=== PATIENT | female | born 1935 | race Hispanic/Latino ===

== ENCOUNTER 2017-10-18 15:08 | Emergency (ER) | payer MEDICARE, MEDICAID ==
--- NOTE | 2017-10-18 17:05 | RAD ---
RIGHT FOOT THREE VIEWS: 10/18/17 HISTORY: Fall, injury, right foot pain. FINDINGS/IMPRESSION: No acute fracture or dislocation identified. Plantar and posterior calcaneus spurs are present. vascu lar calcifications are noted. POS: [facility]
== END 2017-10-18 16:30 | disposition home or self-care (01) ==
LOC: ERS 15:08
DX: S92.351A Displaced fracture of fifth metatarsal bone, right foot, initial encounter for closed fracture (principal); E11.9 Type 2 diabetes mellitus without complications; I10 Essential (primary) hypertension; M19.90 Unspecified osteoarthritis, unspecified site; W20.8XXA Other cause of strike by thrown, projected or falling object, initial encounter

== ENCOUNTER 2017-12-30 11:43 | Observation (INO) | payer MEDICARE, MEDICAID ==
[2017-12-30] MEDS ORDERED: Morphine 4 MG/ML VIAL ONE (12:33)
[2017-12-30] MEDS ORDERED: Ondansetron ODT 4 MG TAB ONE (12:33)
[2017-12-30 12:58] LABS: Hemoglobin 12.5 g/dL (12.0-16.0); Mean Corpuscular HGB CONC 35.2 g/dL (32.0-36.0); Mean Corpuscular Hemoglobin 33.7 pg (27.0-31.0); Mean Corpuscular Volume 95.7 fl (81.0-99.0); Mean Platelet Volume 8.3 fL (7.4-10.4); Platelet Count 58 thou/uL (130-400); RBC Distribution Width 13.5 % (11.5-14.5); Red Blood Cell (RBC) Count 3.71 mill/uL (4.20-5.40); White Blood Cell (WBC) Count 1.5 thou/uL (4.8-10.8)
[2017-12-30 13:09] LABS: ALT (SGPT) 33 U/L (8-55); AST (SGOT) 51 U/L (5-34); Albumin 3.2 g/dL (3.4-4.8); Alkaline Phosphatase 131 U/L (40-150); Anion Gap 10 mmol/L (10-20); BUN (Urea Nitrogen) 8 mg/dL (9.8-20.1); Bilirubin, Total 2.5 mg/dL (0.2-1.2); Calc. Creatinine Clearance 0 mL/min (70-130); Calcium 9.1 mg/dL (7.8-10.44); Carbon Dioxide 24 mmol/L (23-31); Chloride 110 mmol/L (98-107); Estimated GFR-MDRD 72; Globulin 2.9 g/dL (2.4-3.5); Glucose 155 mg/dL (83-110); Lipase 45 U/L (8-78); Potassium 4.1 mmol/L (3.5-5.1); Protein, Total 6.1 g/dL (6.0-8.3); Sodium 140 mmol/L (136-145)
[2017-12-30 13:21] LABS: #Eosinphils 0.1 thou/uL (0.0-0.7); #Lymphocytes 0.5 thou/uL (1.20-3.40); #Monocytes 0.1 thou/uL (0.11-0.59); #Neutrophils 0.8 thou/uL (1.40-6.50); %Basophils 0.5 % (0.0-1.0); %Eosinophils 7.4 % (0.0-10.0); %Lymphocytes 30.8 % (21.0-51.0); %Monocytes 7.6 % (0.0-10.0); %Neutrophils 53.8 % (42.0-75.0); PLT Morphology Comment Appears Decreased
[2017-12-30] MEDS ORDERED: ISOVUE-370 76%-LOCM 1 ML ONE (14:12)
--- NOTE | 2017-12-30 15:03 | CT ---
CT ABDOMEN WITH CONTRAST CT PELVIS WITH CONTRAST: HISTORY: Pain. COMPARISON: 01/04/17. TECHNIQUE: Abdomen and pelvic CT are performed with IV contrast. Enteric contrast was not administered. Monson l reformatted images are submitted for interpretation. FINDINGS: ABDOMEN CT: No masses or consolidation of the lung bases. Heart size is normal. No pericardial effusion. The d escending thoracic aorta and abdominal aorta have a normal caliber. No periaortic fat stranding. Sy mmetric attenuation of psoas muscles. Intra- and extrahepatic portal vein is patent. Mild nodularity of the liver. The spleen is enlarged measuring 16.5 cm. Pancreas and adrenal glands have appropriate enhancement. There is a calculus in the fundus of the gallbladder measuring 1.4 cm. Symmetric enhancement of the kidneys. No obstructive uropathy. No gastrohepatic, retrocrural, or periportal lymphadenopathy. There is free fluid in the perihepatic and perisplenic space. Fluid tracks along both pericolic gutt ers. No mesenteric mass, lymphadenopathy, or free air. Limited evaluation of the alimentary canal due to the lack of oral contrast. Gastric mucosa, duodenu m, and multiple normal-appearing small bowel loops are noted. The ileocecal junction is normal. Nor mal-caliber air-filled appendix. Scattered fecal material in a nondistended, nondilated colon. Dive rticulosis. No diverticulitis. Mucosal thickening of the left hemicolon. Extensive gastroesophageal and splenic varices. Stranding of the central abdominal mesentery is again noted. PELVIC CT: Uterus and adnexal structures are unremarkable. There is free fluid in the pelvis. No mass, lymphad enopathy, or free air. The urinary bladder is unremarkable. IMPRESSION: 1. Cirrhotic change of the liver. 2. Gastroesophageal and splenic varices. There is evidence of portal hypertension. 3. Redemonstration of ascites. 4. Diverticulosis, without evidence of diverticulitis. There is mucosal thickening of the left subhash colon which may be due to inadequate distention. Colonoscopy is recommended. POS: [facility]
[2017-12-30 15:19] LABS: INR-International Normal Ratio 1.5; Prothrombin Time 18.1 SEC (12.0-14.7)
[2017-12-30 15:20] LABS: PTT 42.6 SEC (22.9-36.1)
--- NOTE | 2017-12-30 15:43 | PDOC.FPRHP ---
Addendum entered and electronically signed by Montez Julio MD 12/30/17 16:40 : BP 104/66 Resp 18 O2 Sat 95% on RA P 57 Temp 97.9 Physical Exam Constitutional: obese, Well developed. No acute distress Alert and orientedx3 HEENT: Normocephalic, Atraumatic Neck: No JVD, No LAD, No thyromegaly Cardio: RRR, no murmurs or gallops Resp: CTA-B, no wheezes, crackles or rales Abdomen: TTP in RUQ and RLQ, No rebound tenderness. BS hyperactive. No masses. Neuro: No focal neuro defecit noted Psch: A&Ox3, Cooperative Skin: No rash or lesions. No abnormal bruising noted. MSK: No swelling noted, No weakness noted. ROM intact. 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 States she has been constipated the last 3 days. Denies any diarrhea or hematochezia. Endorses chills but denies fever. Also c/o nausea and vomiting. By review of records, this appears to occur approximately once each year. It has been thought to be due to portal venous congestion & back up vs. infectious vs. ischemic in the past. - Allergies/Adverse Reactions Allergies Allergy/AdvReac Type Severity Reaction Status Date / Time aspirin Allergy Nausea Verified 03/07/17 13:53 hydrocodone Allergy Nausea Verified 03/07/17 13:53 - Home Medications Medication Instructions Recorded Confirmed Type Hydroxychloroquine Sulfate 200 mg PO DAILY 01/01/15 03/07/17 History Nadolol [Corgard] 20 mg PO DAILY 01/05/17 03/07/17 History Pantoprazole [Protonix] 40 mg PO DAILY #30 01/08/17 03/07/17 Rx Levemir Flexpen [Levemir FlexPen] 40 unit SC BID 03/07/17 03/07/17 History - History PMHx: DMII, Peripheral Neuropathy, Hx portal vein thrombosis and SMV thrombosis , OA/RA, 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 FHx: HTN and diabetes Social: Nonsmoker, Nondrinking, No illicit drug use - Review of Systems General: reports: fever/chills. denies: weight/appetite/sleep changes, night sweats Eyes: denies: eye pain, vision changes ENT: denies: nasal congestion, rhinorrhea Respiratory: denies: cough, congestion, shortness of breath, exercise intolerance Cardiovascular: denies: chest pain, palpitation, edema, paroxysmal nocturnal dyspnea Gastrointestinal: reports: nausea, vomiting, constipation, abdominal pain Skin: denies: rashes, lesions, jaundice, itching Musculoskeletal: reports: pain (back pain). denies: tenderness, stiffness, swelling, arthritis/arthralgias Neurological: denies: numbness, syncope, seizure, weakness Psychological: denies: anxiety, depression - Vital signs BP: [] HR: [] RR: [] Tmax: [] Pox: []% on [] Wt: [] - Physical Exam Constitutional: NAD, awake, alert and oriented, well developed FMR H&P: Results - Labs Result Diagrams: 12/30/17 12:27 12/30/17 12:27 Lab results: WBC 1.5 thou/uL (4.8-10.8) L 12/30/17 12:27 Hgb 12.5 g/dL (12.0-16.0) 12/30/17 12:27 Hct 35.5 % (36.0-47.0) L 12/30/17 12:27 MCV 95.7 fl (81.0-99.0) 12/30/17 12:27 Plt Count 58 thou/uL (130-400) L 12/30/17 12:27 Neutrophils % 53.8 % (42.0-75.0) 12/30/17 12:27 Sodium 140 mmol/L (136-145) 12/30/17 12:27 Potassium 4.1 mmol/L (3.5-5.1) 12/30/17 12:27 Chloride 110 mmol/L (98-107) H 12/30/17 12:27 Carbon Dioxide 24 mmol/L (23-31) 12/30/17 12:27 BUN 8 mg/dL (9.8-20.1) L 12/30/17 12:27 Creatinine 0.77 mg/dL (0.6-1.1) 12/30/17 12:27 Glucose 155 mg/dL (83-110) H 12/30/17 12:27 Calcium 9.1 mg/dL (7.8-10.44) 12/30/17 12:27 Total Bilirubin 2.5 mg/dL (0.2-1.2) H 12/30/17 12:27 AST 51 U/L (5-34) H 12/30/17 12:27 ALT 33 U/L (8-55) 12/30/17 12:27 Alkaline Phosphatase 131 U/L (40-150) 12/30/17 12:27 Serum Total Protein 6.1 g/dL (6.0-8.3) 12/30/17 12: Albumin 3.2 g/dL (3.4-4.8) L 12/30/17 12:27 Lipase 45 U/L (8-78) 12/30/17 12:27 - Radiology Interpretation CT scan - abdomen Status: image reviewed by me, report reviewed by me (1) Cirrhotic change of liver 2) GE and splenic varices. Evidence of portal HTN 3) Redemonstration of ascites 4) Diverticulosis, w/o evidence of diverticulitis. Mucosal thickening of left hemicolon which may be due to inadequate distention. Colonoscopy is recommended) FMR H&P: A/P - Problem List (1) Colitis Current Visit: No Status: Acute Code(s): K52.9 - NONINFECTIVE GASTROENTERITIS AND COLITIS, UNSPECIFIED (2) Pancytopenia Current Visit: No Status: Acute Code(s): D61.818 - OTHER PANCYTOPENIA (3) Cirrhosis Current Visit: No Status: Chronic Code(s): K74.60 - UNSPECIFIED CIRRHOSIS OF LIVER Qualifiers: Ascites presence: without ascites Comment: sec to FELIX (4) Diabetes mellitus type 2, insulin dependent Current Visit: No Status: Chronic Code(s): E11.9 - TYPE 2 DIABETES MELLITUS WITHOUT COMPLICATIONS; Z79.4 - LEAD BLENDER (CURRENT) USE OF INSULIN (5) Hyperlipidemia Current Visit: No Status: Chronic Code(s): E78.5 - HYPERLIPIDEMIA, UNSPECIFIED Qualifiers: Hyperlipidemia type: unspecified Qualified Code(s): E78.5 - Hyperlipidemia , unspecified (6) Hypertension Current Visit: No Status: Chronic Code(s): I10 - ESSENTIAL (PRIMARY) HYPERTENSION Qualifiers: Hypertension type: essential hypertension Qualified Code(s): I10 - Essential (primary) hypertension (7) FELIX (nonalcoholic steatohepatitis) Current Visit: No Status: Chronic Code(s): K75.81 - NONALCOHOLIC STEATOHEPATITIS (FELIX) (8) Esophageal varices determined by endoscopy Current Visit: No Status: Acute Code(s): I85.00 - ESOPHAGEAL VARICES WITHOUT BLEEDING - Plan 1) Colitis ddx includes infectious vs. ischemic vs. portal venous congestion. h/o prior SMA occlusion & PV occlusion in pt who is not a candidate for anticoagulation due to varices. Will make pt npo, give gentle IVF and pain control. Pt also constipated. will give colace and miralax. Consider increasing bowel regimen. Could be contributing to pain 2) Pancytopenia -due to end stage liver disease. -Follow w/ daily CMP. -Plateletes and WBC around baseline and stable from previous labs at previous visits 3) End stage liver disease due to FELIX- MELD 14. l abs appear to be near baseline. -Possibly consult GI if pain doesn't improve or labs worsen. Recheck CMP in AM 4) DM2- continue levemir (cut in 1/2 while NPO) + SSI. 5) esophageal varices- avoid nsaids. continue nebivolol & PPI. 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 States she has been constipated the last 3 days. Denies any diarrhea or hematochezia. Endorses chills but denies fever. Also c/o nausea and vomiting. By review of records, this appears to occur approximately once each year. It has been thought to be due to portal venous congestion & back up vs. infectious vs. ischemic in the past. See wedding planning internship H&P for further details regarding ROS, PMhx, Surg hx, etc. - Pertinent findings PE- Gen- A&O x 3, NAD, obese, well appearing CV- RRR no mrg, no LE edema Lungs- CTAB Abd- soft, ttp in RLQ & LLQ, no guarding or rebound ttp Psyc- normal affect, memory intact Laboratory Tests 12/30/17 12/30/17 12/30/17 12:27 12:27 12:27 WBC 1.5 L Hgb 12.5 Hct 35.5 L Plt Count 58 L PT 18.1 H INR 1.5 APTT 42.6 H Sodium 140 Potassium 4.1 Chloride 110 H Carbon Dioxide 24 Creatinine 0.77 Estimated GFR (MDRD) 72 Glucose 155 H Total Bilirubin 2.5 H AST 51 H ALT 33 Alkaline Phosphatase [address] Abd- preliminary read shows thickening in wall of Rt & Lt colon with some fat stranding and ascites present. - Plan Date/Time: 12/30/17 1543 82yo HF with pmhx ESLD, 1) Colitis- ddx includes infectious vs. ischemic vs. portal venous congestion. h /o prior SMA occlusion & PV occlusion in pt who is not a candidate for anticoagulation due to varices. Will make pt npo, give gentle IVF and pain control. treat constipation symptoms and cover with empiric abx to include cipro + flagyl IV. pending bcx. consider GI consultation. 2) Pancytopenia- due to end stage liver disease. avoid unnecessary procedures/ blood draws. no s/sx bleeding. check FOBT. 3) End stage liver disease due to FELIX- MELD 14. labs appear to be near baseline. consider consult palliative care. 4) DM2- continue levemir (cut in 1/2 while NPO) + SSI. 5) esophageal varices- avoid nsaids. continue nebivolol & PPI. I, [Sherrill Hampton DO ([email or web address])], have evaluated this patient and agree with findings/plan as outlined by wedding planning internship resident. Pertinent changes/additions are listed here. Attending Addendum - Attending Addendum Date/Time: 12/30/17 1800 I personally evaluated the patient and discussed the management with I agree with the History, Examination, Assessment and Plan documented above with any addition or exceptions noted below.Patient admitted with nausea,chills ,anorexia and abdominal pain similiar to prior admissions. Patient with Diabetes , end stage liver DX secondary to FELIX(MELD 14).Patient with known portal vein thrombosis not amenable to anticoagulation secondary to thrombocytopenia. Working Diagnosis is colitis ischemic verse infectious, empirical antibiotic flagyl and cipro started and expectant management
[2017-12-30] MEDS ORDERED: Ondansetron HCl/PF 4 MG/2 ML Vial IVP PRN (15:45)
[2017-12-30] MEDS ORDERED: Ondansetron ODT 4 MG TAB PO PRN (15:45)
[2017-12-30] MEDS ORDERED: Acetaminophen 325 MG TAB PO PRN (15:45)
[2017-12-30] MEDS ORDERED: Sodium Chloride 0.9% 1,000 ML IV SCH (15:45)
[2017-12-30] MEDS ORDERED: Dextrose 5% in Water 1,000 ML IV PRN (15:51)
[2017-12-30] MEDS ORDERED: HumaLOG 300 UNITS/3 ML VIAL SC PRN (15:51)
[2017-12-30] MEDS ORDERED: Dextrose 50% Abboject 50 ML SYRINGE SLOW IVP PRN (15:51)
[2017-12-30] MEDS ORDERED: Bisacodyl 10 MG SUPP PR PRN (15:57)
[2017-12-30 16:02] LABS: Bilirubin Negative (Negative); Blood, Urine Negative (Negative); Clarity CLEAR (Clear); Glucose, Urine (Dipstick) Negative (Negative); Leukocyte Negative (Negative); Nitrite Negative (Negative); Protein, Urine (Dipstick) Negative (Neg-Trace); pH, Urine 7.5 (5.0-9.0)
[2017-12-30 16:13] LABS: Specific Gravity, Urine 1.048 (1.002-1.036)
[2017-12-30 16:43] LABS: Hemoglobin A1c 7.7 % (4.0-6.0)
[2017-12-30] MEDS: Lactated Ringer's 1,000 ML IV SCH (18:16)
[2017-12-30] MEDS: metroNIDAZOLE 500 MG in Premix Bag 1 BAG IVPB SCH ×2 (18:16→23:35)
[2017-12-30 18:31] VITALS: BMI 36.3
[2017-12-30] MEDS ORDERED: Insulin Glargine 30 UNITS in Pre-Filled Syringe SC SCH (21:00)
[2017-12-30] MEDS: Docusate 100 MG CAP PO SCH (21:13)
[2017-12-30] MEDS: Ciprofloxacin Lactate/D5W 200 MG in Premix Bag 1 BAG IVPB SCH (21:13)
[2017-12-30] MEDS: Insulin Glargine 15 UNITS in Pre-Filled Syringe SC SCH (21:13)
[2017-12-31] MEDS: metroNIDAZOLE 500 MG in Premix Bag 1 BAG IVPB SCH ×4 (05:33→22:59)
[2017-12-31] MEDS: Lactated Ringer's 1,000 ML IV SCH ×2 (05:42→15:57)
[2017-12-31 05:45] LABS: #Eosinphils 0.1 thou/uL (0.0-0.7); #Lymphocytes 0.5 thou/uL (1.20-3.40); #Monocytes 0.1 thou/uL (0.11-0.59); #Neutrophils 0.9 thou/uL (1.40-6.50); %Eosinophils 7.3 % (0.0-10.0); %Lymphocytes 30.9 % (21.0-51.0); %Monocytes 8.5 % (0.0-10.0); %Neutrophils 53.3 % (42.0-75.0); Hemoglobin 10.8 g/dL (12.0-16.0); Mean Corpuscular HGB CONC 35.2 g/dL (32.0-36.0); Mean Corpuscular Hemoglobin 33.9 pg (27.0-31.0); Mean Corpuscular Volume 96.4 fl (81.0-99.0); Platelet Count 55 thou/uL (130-400); RBC Distribution Width 13.5 % (11.5-14.5); Red Blood Cell (RBC) Count 3.18 mill/uL (4.20-5.40); White Blood Cell (WBC) Count 1.7 thou/uL (4.8-10.8)
[2017-12-31 06:03] LABS: ALT (SGPT) 25 U/L (8-55); AST (SGOT) 38 U/L (5-34); Albumin 2.5 g/dL (3.4-4.8); Alkaline Phosphatase 102 U/L (40-150); Anion Gap 10 mmol/L (10-20); BUN (Urea Nitrogen) 8 mg/dL (9.8-20.1); Bilirubin, Total 2.2 mg/dL (0.2-1.2); Calc. Creatinine Clearance 96 mL/min (70-130); Calcium 8.3 mg/dL (7.8-10.44); Carbon Dioxide 23 mmol/L (23-31); Chloride 111 mmol/L (98-107); Estimated GFR-MDRD 82; Globulin 2.4 g/dL (2.4-3.5); Glucose 120 mg/dL (83-110); Potassium 3.7 mmol/L (3.5-5.1); Protein, Total 4.9 g/dL (6.0-8.3); Sodium 140 mmol/L (136-145)
--- NOTE | 2017-12-31 06:31 | PDOC.FM ---
- Subjective Subjective: No significant overnight events. Patient endorses lower abdominal pain this morning and is uncomfortable since she hasn't had a BM since Sunday. She had many questions regarding why she is hooked up to a "machine". It was explained that she needed fluids and antibiotics. She was upset that we were not letting her eat. She stated that she has been her since Sunday and hasn't had anything to eat. Patient was admitted yesterday afternoon. Patient states she has had abdominal pain for 15 days. She states this happens often. She sees a billing analyst as an outpatient and has not seen him in over a year. She states her last colonoscopy was a year ago. Patient requesting pain medications. - Objective MAR Reviewed: Yes Vital Signs & Weight: Vital Signs (12 hours) Temp Pulse Resp BP Pulse Ox 12/31/17 03:30 63 18 104/49 L 95 12/30/17 23:35 98.2 F 66 18 104/51 L 95 12/30/17 19:25 97.9 F 60 20 117/54 L 98 Weight Weight 93.242 kg I&O: 12/29/17 12/30/17 12/31/17 06:59 06:59 06:59 Intake Total 1300 Balance 1300 Result Diagrams: 12/31/17 05:12 12/31/17 05:12 EKG Reviewed by me: No Radiology Reviewed by me: Yes Phys Exam - Physical Examination Constitutional: NAD HEENT: moist MMs mildly icteric sclera Neck: supple, full ROM Respiratory: no wheezing, clear to auscultation bilateral Cardiovascular: RRR systolic murmur Gastrointestinal: soft, no distention, positive bowel sounds mildly tender to palpation in LLQ and RLQ; no rebound or guarding. Musculoskeletal: no edema, pulses present Neurological: moves all 4 limbs Psychiatric: A&O x 3 Skin: normal turgor, cap refill <2 seconds Dx/Plan (1) Colitis Code(s): K52.9 - NONINFECTIVE GASTROENTERITIS AND COLITIS, UNSPECIFIED Status : Acute (2) Hypertension Code(s): I10 - ESSENTIAL (PRIMARY) HYPERTENSION Status: Chronic Qualifiers: Hypertension type: essential hypertension Qualified Code(s): I10 - Essential (primary) hypertension (3) Cirrhosis Code(s): K74.60 - UNSPECIFIED CIRRHOSIS OF LIVER Status: Chronic Qualifiers: Ascites presence: with ascites (4) Esophageal varices determined by endoscopy Code(s): I85.00 - ESOPHAGEAL VARICES WITHOUT BLEEDING Status: Chronic (5) FELIX (nonalcoholic steatohepatitis) Code(s): K75.81 - NONALCOHOLIC STEATOHEPATITIS (FELIX) Status: Chronic (6) Rheumatoid arthritis Code(s): M06.9 - RHEUMATOID ARTHRITIS, UNSPECIFIED Status: Chronic Qualifiers: Rheumatoid arthritis location: unspecified site Rheumatoid factor presence : unspecified presence Qualified Code(s): M06.9 - Rheumatoid arthritis, unspecified (7) Diabetes mellitus type 2, insulin dependent Code(s): E11.9 - TYPE 2 DIABETES MELLITUS WITHOUT COMPLICATIONS; Z79.4 - PLATE CUTTER (CURRENT) USE OF INSULIN Status: Chronic (8) Gastric varices Code(s): I86.4 - GASTRIC VARICES Status: Chronic (9) Pancytopenia Code(s): D61.818 - OTHER PANCYTOPENIA Status: Chronic (10) Coagulopathy Status: Chronic - Plan Plan: Colitis - ddx includes infectious vs. ischemic vs. portal venous congestion - h/o prior SMA occlusion & PV occlusion in pt who is not a candidate for anticoagulation due to varices - will make pt npo, give gentle IVF, and pain control. - pt also constipated; will give colace and miralax. Consider increasing bowel regimen. Could be contributing to pain - emperic treatment with cipro and flagyl - pt sees billing analyst as outpatient; verify last time seen and when next appointment is - consider further workup as outpatient to include colonoscopy - FOBT negative - stool studies pending - blood and urine cultures pending - bentyl PRN Pancytopenia - due to end stage liver disease and likely a component of medication - plateletes and WBC around baseline and stable from previous labs End stage liver disease due to FELIX - MELD 14. l - abs appear to be near baseline - labs improved this AM - avoid NSAIDs - follow with billing analyst DM2 - continue levemir (cut in 1/2 while NPO) + SSI. Esophageal and gastric varices - avoid nsaids - continue nebivolol & PPI Rheumatoid arthritis - continue home medications CODE STATUS: Full DVT PPX: SCD's (not candidate for pharmacologic ppx) GI PPX: PPI Dispo: pt stable. pending further workup to evaluate potential etiology of colitis.
[2017-12-31] MEDS ORDERED: Sodium Chloride 0.9% 1,000 ML IV SCH (08:30)
[2017-12-31] MEDS: Ciprofloxacin Lactate/D5W 200 MG in Premix Bag 1 BAG IVPB SCH ×2 (08:34→20:11)
[2017-12-31] MEDS: Lisinopril 2.5 MG TAB PO SCH (08:35)
[2017-12-31] MEDS ORDERED: Bisacodyl 5 MG TAB PO PRN (08:35)
[2017-12-31] MEDS: Nadolol 40 MG TAB PO SCH (08:35)
[2017-12-31] MEDS: Docusate 100 MG CAP PO SCH ×2 (08:36→20:10)
[2017-12-31] MEDS ORDERED: Spironolactone 100 MG TAB PO SCH (08:45)
[2017-12-31] MEDS ORDERED: Furosemide 40 MG/4 ML VIAL SLOW IVP SCH (08:45)
[2017-12-31] MEDS ORDERED: Insulin Glargine 30 UNITS in Pre-Filled Syringe SC SCH (09:00)
[2017-12-31] MEDS: Bisacodyl 10 MG SUPP PR SCH ×3 (09:00→16:10)
[2017-12-31] MEDS ORDERED: Furosemide 40 MG TAB PO SCH (09:00)
[2017-12-31] MEDS: Sodium Chloride 0.9% 1,000 ML IV SCH ×2 (10:45→20:09)
[2017-12-31 12:09] LABS: Hep B Core Total Ab Non-Reactive (NonReactive); Hep B Surf AB Non-Reactive (NonReactive)
[2017-12-31] MEDS: Insulin Glargine 15 UNITS in Pre-Filled Syringe SC SCH ×2 (12:25→20:28)
[2017-12-31] MEDS: Polyethylene Glycol 3350 17 GM Packet PO SCH ×2 (15:48→18:05)
[2017-12-31] MEDS ORDERED: Metoclopramide HCl 10 MG/2 ML VIAL IVP PRN (15:59)
[2017-12-31] MEDS ORDERED: Metoclopramide HCl 10 MG/2 ML VIAL IVP SCH (16:00)
--- NOTE | 2017-12-31 16:01 | ADD-PRG ---
DATE OF SERVICE: 12/31/2017 This is an addendum to the note of Dr. Fawn Chowdhury. Mrs. Singh is an 82-year-old female patient with a history of steatohepatitis causing cirrhosis. She was admitted with lower abdominal pain in the right lower quadrant and left lower quadrant. She had CT evidence of possible diverticulitis and is being treated currently with intravenous Cipro and Flagyl. Clinically, she seems improved. Her current vital signs reveal that she is afebrile. Her b lood pressure is 110/60, her pulse rate is 66. She has a room air sat of 95%. LABORATORY DATA: White count is 1700, hemoglobin 10.8, hematocrit 30.6. She has a pancytopenia seco ndary to her cirrhosis. Her abdomen is still slightly tender particularly in the left lower quadrant, but there is no guardin g, rebound, rigidity and overall appears benign. We will continue current management.
[2018-01-01] MEDS: Bisacodyl 10 MG SUPP PR SCH ×2 (01:22→09:29)
[2018-01-01] MEDS: metroNIDAZOLE 500 MG in Premix Bag 1 BAG IVPB SCH ×2 (05:08→12:30)
[2018-01-01 05:51] LABS: ALT (SGPT) 21 U/L (8-55); AST (SGOT) 33 U/L (5-34); Albumin 2.5 g/dL (3.4-4.8); Alkaline Phosphatase 90 U/L (40-150); Anion Gap 9 mmol/L (10-20); BUN (Urea Nitrogen) 8 mg/dL (9.8-20.1); Bilirubin, Total 2.1 mg/dL (0.2-1.2); Calc. Creatinine Clearance 95 mL/min (70-130); Calcium 7.9 mg/dL (7.8-10.44); Carbon Dioxide 20 mmol/L (23-31); Chloride 116 mmol/L (98-107); Estimated GFR-MDRD 78; Globulin 2.2 g/dL (2.4-3.5); Glucose 108 mg/dL (83-110); Potassium 3.5 mmol/L (3.5-5.1); Protein, Total 4.7 g/dL (6.0-8.3); Sodium 141 mmol/L (136-145)
--- NOTE | 2018-01-01 06:45 | PDOC.FM ---
- Subjective Subjective: Patient doing well this AM. No significant overnight events. She has been tolerating PO. Patient has had several large BM's since admission and is feeling much better. She is not complaining of any abdominal pain this morning. Patient ready to go home. She is going to attempt to eat a full liquid diet this AM. She was able to get up at bedside during evaluation. - Objective MAR Reviewed: Yes Vital Signs & Weight: Vital Signs (12 hours) Temp Pulse Resp BP Pulse Ox 01/01/18 04:28 98.7 F 66 20 101/46 L 95 12/31/17 23:56 99.6 F 74 20 101/49 L 96 12/31/17 19:49 99 F 68 18 12/31/17 19:47 99 F 68 18 106/53 L 98 Weight Admit Weight 92.986 kg Weight 96.071 kg I&O: 12/30/17 12/31/17 01/01/18 06:59 06:59 06:59 Intake Total 1300 Balance 1300 Result Diagrams: 01/01/18 05:21 01/01/18 05:21 EKG Reviewed by me: No Radiology Reviewed by me: Yes <Fawn Chowdhury - Last Filed: 01/01/18 08:26> - Objective Vital Signs & Weight: Vital Signs (12 hours) Temp Pulse Resp BP Pulse Ox 01/01/18 12:06 98.8 F 66 18 103/51 L 93 L 01/01/18 09:28 65 01/01/18 07:45 99.3 F 65 20 97/47 L 91 L 01/01/18 07:31 98.7 F 66 20 Weight Admit Weight 92.986 kg Weight 96.071 kg I&O: 12/31/17 01/01/18 01/02/18 06:59 06:59 06:59 Intake Total 1300 1440 Balance 1300 1440 Result Diagrams: 01/01/18 05:21 01/01/18 05:21 <Edward Palacios - Last Filed: 01/01/18 16:48> Phys Exam - Physical Examination Constitutional: NAD HEENT: moist MMs, sclera anicteric Neck: supple Respiratory: no wheezing, clear to auscultation bilateral Cardiovascular: RRR Gastrointestinal: soft, non-tender, no distention, positive bowel sounds Musculoskeletal: no edema, pulses present Neurological: non-focal, moves all 4 limbs Psychiatric: normal affect, A&O x 3 Skin: no rash, cap refill <2 seconds <Fawn Chowdhury - Last Filed: 01/01/18 08:26> Dx/Plan (1) Colitis Code(s): K52.9 - NONINFECTIVE GASTROENTERITIS AND COLITIS, UNSPECIFIED Status : Acute (2) Hypertension Code(s): I10 - ESSENTIAL (PRIMARY) HYPERTENSION Status: Chronic QualifierTitle: Hypertension type: essential hypertension Qualified Code( s): I10 - Essential (primary) hypertension (3) Cirrhosis Code(s): K74.60 - UNSPECIFIED CIRRHOSIS OF LIVER Status: Chronic QualifierTitle: Ascites presence: with ascites (4) Esophageal varices determined by endoscopy Code(s): I85.00 - ESOPHAGEAL VARICES WITHOUT BLEEDING Status: Chronic (5) FELIX (nonalcoholic steatohepatitis) Code(s): K75.81 - NONALCOHOLIC STEATOHEPATITIS (FELIX) Status: Chronic (6) Rheumatoid arthritis Code(s): M06.9 - RHEUMATOID ARTHRITIS, UNSPECIFIED Status: Chronic QualifierTitle: Rheumatoid arthritis location: unspecified site Rheumatoid factor presence: unspecified presence Qualified Code(s): M06.9 - Rheumatoid arthritis, unspecified (7) Diabetes mellitus type 2, insulin dependent Code(s): E11.9 - TYPE 2 DIABETES MELLITUS WITHOUT COMPLICATIONS; Z79.4 - DYNAMOMETER TESTER (CURRENT) USE OF INSULIN Status: Chronic (8) Gastric varices Code(s): I86.4 - GASTRIC VARICES Status: Chronic (9) Pancytopenia Code(s): D61.818 - OTHER PANCYTOPENIA Status: Chronic (10) Coagulopathy Status: Chronic - Plan Plan: Colitis, likely infectious - ddx includes infectious vs. ischemic vs. portal venous congestion - h/o prior SMA occlusion & PV occlusion in pt who is not a candidate for anticoagulation due to varices - advance diet as tolerated; pt attempted full liquid diet this AM - Pain controlled - Fecal lactoferrin and FOBT 1/2 positive; will obtain stool cultures - pt with several large BM's and improvement in abdominal pain - treatment with cipro and flagyl for infectious colitis; symptoms improving - pt sees [employer] consultant as outpatient; last saw 1 year ago - blood and urine cultures pending; negative to date - bentyl PRN - d/c NS as pt is becoming hyperchloremic and is tolerating PO Pancytopenia - due to end stage liver disease and likely a component of medication - plateletes and WBC around baseline and stable from previous labs End stage liver disease due to FELIX - MELD 14. l - abs appear to be near baseline - avoid NSAIDs - follow with [employer] consultant as outpatient DM2 - continue levemir (cut in 1/2 while NPO) + SSI. Esophageal and gastric varices - avoid nsaids - continue nebivolol & PPI Rheumatoid arthritis - continue home medications CODE STATUS: Full DVT PPX: SCD's (not candidate for pharmacologic ppx) GI PPX: PPI Dispo: pt stable. Anticipate discharge home on oral antibiotics. <Fawn Chowdhury - Last Filed: 01/01/18 08:26> Attending Addendum - Attending Addendum Date/Time: 01/01/18 4332 I personally evaluated the patient and discussed the management with Dr. Chowdhury. I agree with the History, Examination, Assessment and Plan documented above with any addition or exceptions noted below. Stable for discharge. <Edward Palacios - Last Filed: 01/01/18 16:48>
[2018-01-01 06:54] LABS: #Eosinphils 0.1 thou/uL (0.0-0.7); #Lymphocytes 0.5 thou/uL (1.20-3.40); #Monocytes 0.1 thou/uL (0.11-0.59); #Neutrophils 0.7 thou/uL (1.40-6.50); %Eosinophils 4.7 % (0.0-10.0); %Lymphocytes 34.3 % (21.0-51.0); %Monocytes 9.6 % (0.0-10.0); %Neutrophils 50.5 % (42.0-75.0); Hemoglobin 10.2 g/dL (12.0-16.0); Mean Corpuscular HGB CONC 34.6 g/dL (32.0-36.0); Mean Corpuscular Hemoglobin 33.6 pg (27.0-31.0); Mean Corpuscular Volume 97.2 fl (81.0-99.0); Mean Platelet Volume 8.7 fL (7.4-10.4); Platelet Count 54 thou/uL (130-400); RBC Distribution Width 13.3 % (11.5-14.5); Red Blood Cell (RBC) Count 3.03 mill/uL (4.20-5.40); White Blood Cell (WBC) Count 1.3 thou/uL (4.8-10.8)
[2018-01-01] MEDS ORDERED: Furosemide 40 MG TAB PO SCH (07:30)
[2018-01-01] MEDS ORDERED: Spironolactone 100 MG TAB PO SCH (08:00)
[2018-01-01] MEDS: Polyethylene Glycol 3350 17 GM Packet PO SCH (09:28)
[2018-01-01] MEDS: Lisinopril 2.5 MG TAB PO SCH (09:28)
[2018-01-01] MEDS: Nadolol 40 MG TAB PO SCH (09:28)
[2018-01-01] MEDS: Docusate 100 MG CAP PO SCH (09:28)
[2018-01-01] MEDS: Ciprofloxacin Lactate/D5W 200 MG in Premix Bag 1 BAG IVPB SCH (09:28)
[2018-01-01] MEDS: Insulin Glargine 15 UNITS in Pre-Filled Syringe SC SCH (09:29)
[2018-01-01] MEDS: Sodium Chloride 0.9% 1,000 ML IV SCH (09:43)
[2018-01-01 12:07] VITALS: BP 103/51; TEMP 98.8
== END 2018-01-01 13:55 | disposition home or self-care (01) ==
LOC: ERS 11:43 → ONC 16:19
PROVIDERS: ADMIT Family Medicine; ATTEND Family Medicine
DX: K52.9 Noninfective gastroenteritis and colitis, unspecified (principal); K59.00 Constipation, unspecified; K75.81 Nonalcoholic steatohepatitis (NASH); K74.60 Unspecified cirrhosis of liver; R18.8 Other ascites; K72.90 Hepatic failure, unspecified without coma; D61.818 Other pancytopenia; I85.00 Esophageal varices without bleeding; E78.5 Hyperlipidemia, unspecified; M06.9 Rheumatoid arthritis, unspecified; E11.42 Type 2 diabetes mellitus with diabetic polyneuropathy; I10 Essential (primary) hypertension; Z79.4 Long term (current) use of insulin; Z79.899 Other long term (current) drug therapy; Z88.5 Allergy status to narcotic agent; Z88.8 Allergy status to other drugs, medicaments and biological substances
CPT/HCPCS: 74177; 80053 ×2; 81003; 82274; 82962 ×3; 83036; 83630; 83690; 85025 ×2; 85610; 85730; 86704; 86706; 86708; 87040; 90746; 96361 ×3; 96365; 96366 ×2; 96367 ×2; 96375 ×2; 99285; G0378; P9045; 36415; 36416; 84443; 96374; A4216; J0744; J2270; J2765; Q0162

== ENCOUNTER 2018-01-18 09:14 | Outpatient (CLI) | payer MEDICARE, MEDICAID | END 2018-01-18 09:15 | disposition home or self-care (01) | LOC: BICMAMMO 09:14 | PROVIDERS: ATTEND Family Medicine | DX: Z13.820 Encounter for screening for osteoporosis (principal); Z78.0 Asymptomatic menopausal state | CPT/HCPCS: 77080 ==

== ENCOUNTER 2018-03-05 09:31 | Outpatient (CLI) | payer MEDICARE, MEDICAID | END 2018-03-05 09:32 | disposition home or self-care (01) | LOC: BICULT 09:31 | PROVIDERS: ATTEND Internal Medicine Gastroenterology | DX: K74.60 Unspecified cirrhosis of liver (principal); R63.4 Abnormal weight loss; R18.8 Other ascites; I85.00 Esophageal varices without bleeding; K80.80 Other cholelithiasis without obstruction; R16.1 Splenomegaly, not elsewhere classified; R93.2 Abnormal findings on diagnostic imaging of liver and biliary tract | CPT/HCPCS: 76700 ==

== ENCOUNTER 2018-06-26 10:26 | Emergency (ER) | payer MEDICARE, MEDICAID ==
[2018-06-26 11:29] LABS: #Eosinphils 0.1 thou/uL (0.0-0.7); #Lymphocytes 0.6 thou/uL (1.20-3.40); #Monocytes 0.2 thou/uL (0.11-0.59); #Neutrophils 1.6 thou/uL (1.40-6.50); %Basophils 0.6 % (0.0-1.0); %Eosinophils 5.5 % (0.0-10.0); %Lymphocytes 24.6 % (21.0-51.0); %Monocytes 8.4 % (0.0-10.0); %Neutrophils 60.9 % (42.0-75.0); Hemoglobin 13.9 g/dL (12.0-16.0); Mean Corpuscular HGB CONC 33.5 g/dL (32.0-36.0); Mean Corpuscular Hemoglobin 33.2 pg (27.0-31.0); Mean Corpuscular Volume 99.1 fL (78.0-98.0); Mean Platelet Volume 9.9 fL (7.4-10.4); Platelet Count 52 thou/uL (130-400); RBC Distribution Width 13.9 % (11.5-14.5); Red Blood Cell (RBC) Count 4.17 mill/uL (4.20-5.40); White Blood Cell (WBC) Count 2.6 thou/uL (4.8-10.8)
[2018-06-26 11:38] LABS: Base Excess-Venous -2.3 mmol/L (0 (+/- 2.5)); Bicarbonate (HCO3v) 21.1 mmol/L (1.0-85.0); CO2 Tension (PvCO2) 31.2 mmHg (41.0-51.0); Calcium, Ionized 1.18 mmol/L (1.12-1.32); Hemoglobin - Calc 12.7 g/dL (12.0-18.0); O2 Tension (PvO2) 45.4 mmHg (35.0-45.0); Potassium 4.8 mmol/L (3.4-4.7); pH (Venous) 7.437 (7.35-7.45); vO2 Saturation-calc 83.3 % (94-98)
[2018-06-26 11:45] LABS: ALT (SGPT) 35 U/L (8-55); AST (SGOT) 35 U/L (5-34); Albumin 3.2 g/dL (3.4-4.8); Alkaline Phosphatase 107 U/L (40-150); Anion Gap 12 mmol/L (10-20); BUN (Urea Nitrogen) 25 mg/dL (9.8-20.1); Bilirubin, Total 2.1 mg/dL (0.2-1.2); Calc. Creatinine Clearance 0 mL/min (70-130); Calcium 9.2 mg/dL (7.8-10.44); Carbon Dioxide 22 mmol/L (23-31); Chloride 105 mmol/L (98-107); Estimated GFR-MDRD 33; Globulin 3.7 g/dL (2.4-3.5); Glucose 509 mg/dL (83-110); Potassium 5.1 mmol/L (3.5-5.1); Protein, Total 6.9 g/dL (6.0-8.3); Sodium 134 mmol/L (136-145)
[2018-06-26 11:49] LABS: CKMB 2.4 ng/mL (0-6.6); Troponin I Less than 0.010 ng/mL (< 0.028)
[2018-06-26] MEDS ORDERED: Insulin Regular 300 UNITS/3 ML VIAL ONE (12:18)
--- NOTE | 2018-06-26 12:25 | RAD ---
CHEST ONE VIEW: HISTORY: Dyspnea. COMPARISON: Radiograph from 02/12/2015. FINDINGS: The lungs are clear. No pneumothorax or effusion. The cardiac silhouette and mediastinal contour ar e within normal limits. IMPRESSION: No acute thoracic abnormality. POS: [facility]
[2018-06-26 13:13] LABS: Bilirubin Negative (Negative); Blood, Urine Negative (Negative); Clarity CLEAR (Clear); Glucose, Urine (Dipstick) >=1000 mg/dL (Negative); Leukocyte Negative (Negative); Nitrite Negative (Negative); Protein, Urine (Dipstick) Negative (Neg-Trace); Specific Gravity, Urine 1.027 (1.002-1.036); pH, Urine 5.5 (5.0-9.0)
== END 2018-06-26 14:31 | disposition home or self-care (01) ==
LOC: ERS 10:26
DX: E11.65 Type 2 diabetes mellitus with hyperglycemia (principal); I12.9 Hypertensive chronic kidney disease with stage 1 through stage 4 chronic kidney disease, or unspecified chronic kidney disease; N18.9 Chronic kidney disease, unspecified; M62.81 Muscle weakness (generalized); K21.9 Gastro-esophageal reflux disease without esophagitis; Z79.899 Other long term (current) drug therapy
CPT/HCPCS: 36416; 71045; 80053; 81003; 82330; 82553; 82803; 83605; 83880; 84443; 84484; 85025; 87040; 87086; 93005; 96360; J1815

== ENCOUNTER 2018-08-07 10:27 | Emergency (ER) | payer MEDICARE, MEDICAID ==
--- NOTE | 2018-08-07 12:15 | RAD ---
PA AND LATERAL CHEST: History: Fall, right hip pain. FINDINGS: Comparison is made with exam of 06-26-18. The heart size is normal. No focal areas of consolidation, pneumothoraces or pleural effusions are se en. There are degenerative changes in the shoulder joints and acromioclavicular joints and thoracic s pine. IMPRESSION: No radiographic evidence of acute cardiopulmonary process. POS: [facility]
== END 2018-08-07 12:16 | disposition home or self-care (01) ==
LOC: ERS 10:27
DX: R07.89 Other chest pain (principal); K21.9 Gastro-esophageal reflux disease without esophagitis; E11.9 Type 2 diabetes mellitus without complications; I10 Essential (primary) hypertension; Z79.899 Other long term (current) drug therapy; Z79.84 Long term (current) use of oral hypoglycemic drugs; W19.XXXA Unspecified fall, initial encounter
CPT/HCPCS: 71046

== ENCOUNTER 2018-08-09 12:39 | Emergency (ER) | payer MEDICARE, MEDICAID ==
[2018-08-09 14:20] LABS: #Eosinphils 0.5 thou/uL (0.0-0.7); #Lymphocytes 0.9 thou/uL (1.20-3.40); #Monocytes 0.5 thou/uL (0.11-0.59); #Neutrophils 2.5 thou/uL (1.40-6.50); %Basophils 0.4 % (0.0-1.0); %Eosinophils 11.9 % (0.0-10.0); %Lymphocytes 20.3 % (21.0-51.0); %Monocytes 10.5 % (0.0-10.0); %Neutrophils 56.8 % (42.0-75.0); Hemoglobin 11.9 g/dL (12.0-16.0); Mean Corpuscular HGB CONC 34.4 g/dL (32.0-36.0); Mean Corpuscular Hemoglobin 34.8 pg (27.0-31.0); Mean Platelet Volume 8.4 fL (7.4-10.4); Platelet Count 102 thou/uL (130-400); RBC Distribution Width 13.9 % (11.5-14.5); Red Blood Cell (RBC) Count 3.42 mill/uL (4.20-5.40); White Blood Cell (WBC) Count 4.3 thou/uL (4.8-10.8)
--- NOTE | 2018-08-09 14:32 | RAD ---
PORTABLE CHEST ONE VIEW: 08/09/2018 1:45 p.m. HISTORY: Fall. Chest pain. COMPARISON: 08/07/2018 FINDINGS: The heart size is normal. There is mild atelectasis versus infiltrate versus small left pleural effu kwasi. No pneumothoraces or lobar consolidation is seen. There are degenerative changes in the spine . POS: [facility]
--- NOTE | 2018-08-09 14:34 | RAD ---
RIGHT SHOULDER THREE VIEWS: HISTORY: Fall. Pain. COMPARISON: None. 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 No acute displaced fracture or malalig nment. The ribs are intact. 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 POS: [facility]
[2018-08-09 14:46] LABS: ALT (SGPT) 19 U/L (8-55); AST (SGOT) 31 U/L (5-34); Albumin 2.7 g/dL (3.4-4.8); Alkaline Phosphatase 129 U/L (40-150); Anion Gap 13 mmol/L (10-20); BUN (Urea Nitrogen) 29 mg/dL (9.8-20.1); Bilirubin, Total 3.1 mg/dL (0.2-1.2); CK (CPK) 108 U/L (29-168); Calc. Creatinine Clearance 0 mL/min (70-130); Carbon Dioxide 20 mmol/L (23-31); Chloride 109 mmol/L (98-107); Estimated GFR-MDRD 28; Globulin 3.5 g/dL (2.4-3.5); Glucose 187 mg/dL (83-110); Potassium 3.9 mmol/L (3.5-5.1); Protein, Total 6.2 g/dL (6.0-8.3); Sodium 138 mmol/L (136-145)
--- NOTE | 2018-08-09 16:37 | CT ---
CT CHEST WITHOUT IV CONTRAST: CT ABDOMEN AND PELVIS WITHOUT IV CONTRAST: CT THORACIC AND LUMBAR SPINE: 08/09/2018 HISTORY: Right chest wall pain post fall several days ago. COMPARISON: 12/30/2017 FINDINGS: CHEST: There is an area of parenchymal consolidation seen at the medial aspect of the right lower lo be, which may be related to atelectasis, but pneumonia is also a differential consideration. There i s a tiny left pleural effusion with passive atelectasis noted at the left lung base. There are a few linear, nodular densities in a subpleural location on the right, which may be related to areas of mild pleural and parenchymal scarring. This is a stable finding compared to the prior e xam, as well as on the study of 01/04/2017. There is no pneumothorax seen. Lack of intravenous contrast limits evaluation of the vascular structures and mediastinum, but there is no evidence of a mediastinal hematoma. Scattered vascular calcifications are seen in the thoracic aorta. There is a trace pericardial effusion present. There is slight displacement of right lateral 6th and 7th rib fractures, with a subtle nondisplaced f racture involving the lateral right 8th rib. There is trace extrapleural density seen adjacent to th e fractures, likely related to a very tiny amount of hemorrhage. No additional rib fracture is visua lized. ABDOMEN AND PELVIS: The liver is small in size with suggestion of a slight peripheral nodular contou r, likely attributable to cirrhosis. The spleen is mildly enlarged, measuring 14 cm in craniocaudal dimensions. There are splenic varices identified with a probable splenorenal shunt present. There a re also varices seen in the region of the gastrohepatic ligament, as well as esophageal varices, also seen on prior exam. The pancreas, right adrenal gland, and bilateral kidneys demonstrate a grossly normal nonenhanced CT appearance. The left adrenal gland is less well visualized, but also demonstrates a grossly normal n onenhanced CT appearance. The urinary bladder and uterus, as well as the adnexal structures, demonstrate a grossly normal nonen hanced CT appearance for the patient's age. There is a small to moderate amount of intraperitoneal free fluid, and the intraperitoneal free fluid has increased from the study in 2018. Fluid in the abdomen also demonstrates fluid attenuation. There is scattered colonic diverticulosis. No fracture is visualized. THORACIC AND LUMBAR SPINE: Multilevel degenerative changes with osteophytes seen at multiple levels throughout the thoracic spine, as well as involving the lumbar spine. Facet degenerative changes are also present, predominantly involving the lower lumbar spine. The vertebral body heights are within normal limits. No fracture or subluxation is seen involving the thoracic or lumbar spine. Injection granulomata are seen in the gluteal regions bilaterally. IMPRESSION: 1. Fractures involving the right 6th, 7th, and 8th ribs, with mild displacement of the fractures inv olving the 6th and 7th ribs. There is no pneumothorax seen. 2. Consolidation, medial right lung base, which may be attributable to atelectasis, aspiration pneum onitis, or pneumonia. 3. Tiny left pleural effusion and atelectasis. 4. Ascites. 5. 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 6. Colonic diverticulosis. 7. Multilevel degenerative changes in the thoracic and lumbar spine. No fracture or subluxation is seen involving the thoracic or lumbar spine. 8. Lack of intravenous contrast does limit evaluation of the vascular structures, as well as the par enchymal organs. POS: [facility]
[2018-08-09] MEDS ORDERED: Morphine 4 MG/ML VIAL ONE (17:25)
[2018-08-09] MEDS ORDERED: Ondansetron PF 4 MG/2 ML Vial ONE (17:31)
== END 2018-08-09 17:43 | disposition home or self-care (01) ==
LOC: ERS 12:39
DX: S22.41XA Multiple fractures of ribs, right side, initial encounter for closed fracture (principal); Z79.84 Long term (current) use of oral hypoglycemic drugs; Z79.899 Other long term (current) drug therapy; W19.XXXA Unspecified fall, initial encounter
CPT/HCPCS: 36415; 71045; 71250; 74177; 80053; 82550; 83880; 84484; 85025; 93005; 96365; 96375; J0131; J2270; J2405

== ENCOUNTER 2018-09-03 06:32 | Emergency (ER) | payer MEDICARE, MEDICAID ==
--- NOTE | 2018-09-03 08:16 | RAD ---
CHEST ONE VIEW: HISTORY: Low blood sugar. Altered mental status. Unable to walk on her own. COMPARISON: 08/09/2018 FINDINGS: Monitor leads overly the chest. Multiple healing right rib fractures, including at least the 5th, 6t h, 7th, and possibly 8th ribs. No pneumothorax or significant pleural effusion. Heart size is borde rline. No confluent pneumonia. No pneumothorax or significant acute pleural effusion. IMPRESSION: 1. Healing right rib fractures from prior CT of 08/09/2018. 2. No significant acute intrathoracic disease. 3. No pneumothorax. POS: [facility]
[2018-09-03 08:20] LABS: Bilirubin Negative (Negative); Blood, Urine Negative (Negative); Clarity CLEAR (Clear); Glucose, Urine (Dipstick) Negative (Negative); Leukocyte Negative (Negative); Nitrite Negative (Negative); Protein, Urine (Dipstick) Negative (Neg-Trace); Specific Gravity, Urine 1.008 (1.002-1.036); Urobilinogen 0.2 mg/dL (0.2-1.0); pH, Urine 5.5 (5.0-9.0)
[2018-09-03 08:58] LABS: #Eosinphils 0.3 thou/uL (0.0-0.7); #Lymphocytes 0.6 thou/uL (1.20-3.40); #Monocytes 0.3 thou/uL (0.11-0.59); #Neutrophils 2.8 thou/uL (1.40-6.50); %Basophils 0.4 % (0.0-1.0); %Eosinophils 7.6 % (0.0-10.0); %Lymphocytes 13.9 % (21.0-51.0); %Monocytes 7.3 % (0.0-10.0); %Neutrophils 70.8 % (42.0-75.0); Hemoglobin 12.1 g/dL (12.0-16.0); Mean Corpuscular Hemoglobin 33.6 pg (27.0-31.0); Mean Platelet Volume 7.9 fL (7.4-10.4); Platelet Count 92 thou/uL (130-400); RBC Distribution Width 13.1 % (11.5-14.5); Red Blood Cell (RBC) Count 3.61 mill/uL (4.20-5.40)
--- NOTE | 2018-09-03 09:04 | CT ---
CT BRAIN WITHOUT CONTRAST: Date: 09/03/18 HISTORY: Altered mental status. FINDINGS: Comparison made with exam of 04/13/17. Changes of chronic small vessel ischemic disease are again seen. The ventricular size is stable and t he basilar cisterns are patent. No evidence of acute infarct, hemorrhage, midline shift, or abnormal extra-axial fluid collections are seen. The bony calvarium is intact. There is mucosal disease in the paranasal sinuses. IMPRESSION: No CT evidence of acute intracranial process. POS: [facility]
[2018-09-03 09:17] LABS: ALT (SGPT) 13 U/L (8-55); AST (SGOT) 35 U/L (5-34); Albumin 2.6 g/dL (3.4-4.8); Alkaline Phosphatase 154 U/L (40-150); Anion Gap 13 mmol/L (10-20); BUN (Urea Nitrogen) 27 mg/dL (9.8-20.1); Bilirubin, Total 3.2 mg/dL (0.2-1.2); Calc. Creatinine Clearance 0 mL/min (70-130); Calcium 8.6 mg/dL (7.8-10.44); Carbon Dioxide 20 mmol/L (23-31); Chloride 111 mmol/L (98-107); Estimated GFR-MDRD 28; Globulin 3.5 g/dL (2.4-3.5); Potassium 3.9 mmol/L (3.5-5.1); Protein, Total 6.1 g/dL (6.0-8.3); Sodium 140 mmol/L (136-145)
[2018-09-03 09:28] LABS: Glucose 51 mg/dL (83-110)
== END 2018-09-03 12:58 | disposition home or self-care (01) ==
LOC: ERS 06:32
DX: E11.649 Type 2 diabetes mellitus with hypoglycemia without coma (principal); E11.22 Type 2 diabetes mellitus with diabetic chronic kidney disease; I12.9 Hypertensive chronic kidney disease with stage 1 through stage 4 chronic kidney disease, or unspecified chronic kidney disease; N18.9 Chronic kidney disease, unspecified; K21.9 Gastro-esophageal reflux disease without esophagitis; Z79.84 Long term (current) use of oral hypoglycemic drugs; Z79.899 Other long term (current) drug therapy
CPT/HCPCS: 36415; 36416; 70450; 71045; 80053; 81003; 84484; 85025; 93005; 94760

== ENCOUNTER 2019-02-10 14:45 | Emergency (ER) | payer MEDICARE, MEDICAID ==
--- NOTE | 2019-02-10 15:44 | RAD ---
RADIOGRAPH CHEST 2 VIEW: DATE: 02/10/2019 TIME: 3:29 PM HISTORY: 83-year-old female with acute traumatic right rib pain after fall (repeat injury) COMPARISON: 2 view of 08/07/2018 and 1 view of 09/03/2018. FINDINGS: There is mild blunting of the bilateral posterior costophrenic angles, new since the lateral view of 08/07/2018. No thoracic spine vertebral body compression fracture is visualized. Again noted are the displaced, healing right lateral rib fractures. There has been further healing since 09/03/2018. There is a new tiny focus of subsegmental atelectasis at the left lower lung zone on the frontal view. There has been no other interval changes on the frontal view. No cardiomegaly. No pulmonary edema. Amrita ngs are clear. No pneumothorax. IMPRESSION: 1) further healing of right subacute, early chronic right lateral traumatic rib fractures. 2) new finding of bilateral very small pleural effusions.
[2019-02-10] MEDS ORDERED: Naproxen 500 MG TAB ONE (16:02)
== END 2019-02-10 16:46 | disposition home or self-care (01) ==
LOC: ERS 14:45
DX: S20.211A Contusion of right front wall of thorax, initial encounter (principal); E11.9 Type 2 diabetes mellitus without complications; I10 Essential (primary) hypertension; M19.90 Unspecified osteoarthritis, unspecified site; Z79.84 Long term (current) use of oral hypoglycemic drugs; Z79.899 Other long term (current) drug therapy; W22.03XA Walked into furniture, initial encounter
CPT/HCPCS: 71046

== ENCOUNTER 2019-02-21 05:52 | Emergency (ER) | payer MEDICARE, MEDICAID ==
[2019-02-21 06:47] LABS: #Eosinphils 0.3 thou/uL (0.0-0.7); #Lymphocytes 0.5 thou/uL (1.20-3.40); #Monocytes 0.3 thou/uL (0.11-0.59); #Neutrophils 1.4 thou/uL (1.40-6.50); %Basophils 1.6 % (0.0-1.0); %Eosinophils 10.7 % (0.0-10.0); %Lymphocytes 19.5 % (21.0-51.0); %Monocytes 10.5 % (0.0-10.0); %Neutrophils 57.8 % (42.0-75.0); Hemoglobin 9.8 g/dL (12.0-16.0); Mean Corpuscular HGB CONC 32.3 g/dL (32.0-36.0); Mean Corpuscular Hemoglobin 33.3 pg (27.0-31.0); Mean Platelet Volume 7.2 fL (7.4-10.4); Platelet Count 99 thou/uL (130-400); RBC Distribution Width 13.4 % (11.5-14.5); Red Blood Cell (RBC) Count 2.95 mill/uL (4.20-5.40); White Blood Cell (WBC) Count 2.5 thou/uL (4.8-10.8)
[2019-02-21 06:53] LABS: ALT (SGPT) 14 U/L (8-55); AST (SGOT) 28 U/L (5-34); Albumin 2.2 g/dL (3.4-4.8); Alkaline Phosphatase 144 U/L (40-150); Anion Gap 11 mmol/L (10-20); BUN (Urea Nitrogen) 26 mg/dL (9.8-20.1); Bilirubin, Total 2.3 mg/dL (0.2-1.2); Calc. Creatinine Clearance 0 mL/min (70-130); Calcium 8.3 mg/dL (7.8-10.44); Carbon Dioxide 23 mmol/L (23-31); Chloride 110 mmol/L (98-107); Estimated GFR-MDRD 29; Globulin 3.8 g/dL (2.4-3.5); Glucose 180 mg/dL (83-110); Lipase 53 U/L (8-78); Potassium 3.4 mmol/L (3.5-5.1); Sodium 141 mmol/L (136-145)
[2019-02-21 07:08] LABS: Bilirubin Negative (Negative); Blood, Urine Negative (Negative); Clarity Turbid (Clear); Glucose, Urine (Dipstick) Normal (Negative); Leukocyte 25 Leu/uL (Negative); Mucous/LPF Rare LPF (<2+); Nitrite Negative (Negative); Protein, Urine (Dipstick) Negative (Neg-Trace); RBC/HPF 0-3 HPF (0-3); Urobilinogen 3 mg/dL (Less than 2); Yeast-Budding 2+ HPF (None Seen)
--- NOTE | 2019-02-21 07:45 | CT ---
CT abdomen and pelvis noncontrast HISTORY: Flank pain. Nausea vomiting. COMPARISON: 08/09/2018. FINDINGS: Each renal collecting system, ureter, and urinary bladder are decompressed without stone ap parent. Lack of contrast limits evaluation for other abnormalities. Small amount right pleural fluid. Old rig ht lower lateral rib fractures. Liver is small with a nodular contour. Spleen measures up to 14.7 cm. Hyperdense stone in the gallbladder lumen. Diffuse wall thickening of the stomach. Moderate amoun t of free fluid throughout the abdomen and pelvis. Diverticula arise from the colon. No inflammation is apparent, although lack of contrast and abdominal fluid limits evaluation. Nonspecifi c lymph nodes scattered throughout the mesentery and retroperitoneum. Injection granulomata, calcified, within the right gluteal area. IMPRESSION: No CT evidence of urinary tract obstruction or calcification. Cirrhotic appearance of the liver. Findings of portal venous hypertension include mild to moderate sp lenomegaly, ascites, and right pleural fluid. Cholelithiasis. Diverticulosis. No evidence of diverticulitis.
[2019-02-21] MEDS ORDERED: Ondansetron ODT 4 MG TAB ONE (08:20)
[2019-02-21 09:02] LABS: Bacteria/HPF 1+ HPF (None Seen)
--- NOTE | 2019-02-22 14:09 | EKG ---
Test Reason : Blood Pressure : / mmHG Vent. Rate : 063 BPM Atrial Rate : 063 BPM P-R Int : 150 ms QRS Dur : 096 ms QT Int : 450 ms P-R-T Axes : -06 -30 026 degrees QTc Int : 460 ms Normal sinus rhythm Left axis deviation Abnormal ECG Confirmed by INDRA APODACA ([id number]), newspaper photo editor MAHAD CORTES ([id number]) on 02/22/2019 2:09:14 PM Referred By: Confirmed By:INDRA APODACA
== END 2019-02-21 08:35 | disposition home or self-care (01) ==
LOC: ERS 05:52
DX: R10.9 Unspecified abdominal pain (principal); R11.2 Nausea with vomiting, unspecified; E11.9 Type 2 diabetes mellitus without complications; I10 Essential (primary) hypertension; K21.9 Gastro-esophageal reflux disease without esophagitis; M19.90 Unspecified osteoarthritis, unspecified site; K74.60 Unspecified cirrhosis of liver
CPT/HCPCS: 36415; 74176; 80053; 81003; 81015; 83690; 84484; 85025; 93005; Q0162